=== PATIENT | female | born 1940 | race Hispanic/Latino ===

== ENCOUNTER 2023-09-04 09:52 | Emergency (ER) | payer MEDICARE, OTHER, SELFPAY ==
[2023-09-04] VITALS (7 sets, daily range): BP systolic 110–156; BP diastolic 72–99; PULSE 80–85
[2023-09-04 11:12] LABS: % Basophils 0.5 % (0-2); % Eosinophils 0.5 % (0-6); % Immature Granulocytes 0.5 % (0-0.5); % Lymphocytes 20.6 % (20.5-51.1); % Monocytes 7.6 % (1.7-9.3); % Neutrophils 70.3 % (42.2-75.2); Absolute Lymphocytes 0.9 10^3/uL (1.2-3.4); Absolute Monocytes 0.3 10^3/uL (0.1-0.6); Absolute Neutrophils 3.1 10^3/uL (1.4-6.5); Hematocrit 34.2 % (37.0-47.0); Hemoglobin 11.3 g/dL (12.0-16.0); Mean Corpuscular Hgb 29.4 pg (27.0-31.0); Mean Corpuscular Volume 89.1 fL (81.0-99.0); Mean Platelet Volume 10.1 fL (7.4-10.4); Nucleated Red Blood Cells % 0 %; Platelet Count 157 10^3/uL (130-400); Red Blood Cell Count 3.84 10^6/uL (4.20-5.40); Red Cell Dist. Width 14.1 % (11.5-14.5); White Blood Cell Count 4.4 10^3/uL (4.8-10.8)
--- NOTE | 2023-09-04 11:19 | ED.GENMED ---
History of Present Illness
General
Chief Complaint: Fainting Sensation
Source: patient
Exam Limitations: none
Time Seen by Provider: 09/04/23 11:13
Nursing documentation reviewed up to this point in time: agreed with
Travel History
Have you had any contact with someone who has COVID-19?: No
Do you have any symptoms of coronavirus? Fever > 100 degrees, chills, cough, shortness of breath, sore throat, loss of taste or smell, muscle aches, or headache?: No
History of Present Illness
History of Present Illness:
The patient is a pleasant 82-year-old female who reports a feeling of generalized fatigue and lightheadedness since yesterday. Patient reports that she was standing at her kitchen sink this morning and felt as though she was going to pass out.
Patient reports she had to hold onto the counter to prevent herself from falling down and passing out. Patient also reports very mild aching of the left side of her head but denies actual headache. She denies vision changes, focal weakness or
numbness. She denies vomiting and diarrhea. She reports earlier she felt slightly nauseous when she felt lightheaded. She denies sick contacts. She denies fever, sore throat, runny nose and cough.
Past History
Past History
ED Past Medical History: Cancer (colon, brain), HTN and Other (Previous colonic obstruction with near total colectomy in 2013, seasonal allergies)
ED Past Surgical History: Bowel resection (with colostomy) and
Social History
Tobacco: Non-smoker
Alcohol: None
Drug: None
Personal: Other
Living: with family
Employment: Other
Family History
Family History: Other
Review of Systems
Review of Systems
Allergies reviewed?: Yes
All Other Systems: ROS reviewed and negative except as documented in HPI and ROS
Constitutional: Reports fatigue
EENT: Reports no symptoms
Respiratory: Reports no symptoms
Cardiac: Reports other (Lightheaded)
ABD/GI: Reports nausea
: Reports no symptoms
Musculoskeletal: Reports no symptoms
Skin: Reports no symptoms
Neurological: Reports no symptoms
Endocrine: Reports no symptoms
Hematologic/Lymphatic: Reports no symptoms
Psychiatric: Reports no symptoms
Phy Exam
Physical Exam
Physical Exam:
Physical Exam
General: no apparent distress, not acutely ill
Neck: supple. no meningeal signs. normal psoterior pharynx
Heart: s1/s2 regular rate and rhythm, no murmur. equal radial pulses.
Lungs: no acute respiratory distress. clear bilaterally
Abdomen: normal bowel sounds. not tender. no CVAT
Neuro: alert and oriented. no focal neurological deficits. Cranial nerves equal and symmetric bilaterally. 5 out of 5 strength in all extremities without drift. Normal speech. Equal sensation bilaterally
Skin: no rash
Psychiatric: well kept. interactive and cooperative
Extremities: no edema. no calf tenderness. negative homans. good distal pulses
Course
Orders/Labs/Results
Orders:
Orders
09/04/23 11:01
Basic Metabolic Panel Urgent
Complete Blood Count/With Diff Urgent
Erythrocyte Sed Rate Urgent
Comment: ADD ON
TSH Urgent
Comment: ADD ON
09/04/23 11:19
Electrocardiogram (*1) Urgent
Reason for Study: Fatigue / Weakness
EKG- Treatment ONCE
09/04/23 11:20
Add On- LAB Urgent
Tests Added?: ESR
09/04/23 11:21
Troponin I Urgent
09/04/23 11:27
Orthostatic VS- Treatment ONCE
09/04/23 11:47
COVID-19 Antigen Urgent
Source: Nasal Swab
Urinalysis Reflex To Culture Urgent
Date Specimen was Collected: 09/04/23
Time Specimen was Collected: 11:36
Urine Microscopic Reflex Cult Urgent
Influenza A+B Rapid Molecular Urgent
GAURAV Source: Nasal Swab
Specimen Description:
09/04/23 12:32
0.9% Sodium Chloride 1000 ml [Nss] 1,000 ml IV BOLUS
09/04/23 12:34
Add On- LAB Urgent
Tests Added?: TSH
09/04/23 12:35
Add On- LAB Urgent
Tests Added?: monotest
09/04/23 12:55
LFT [Olcts-Jifg-Jdaujdu] Urgent
Potassium Urgent
Troponin I Urgent
09/04/23 13:57
Monotest Urgent
Comment: ADD ON
Abnormal Lab Results
09/04/23 09/04/23
11:01 11:47
WBC 4.4 L 10^3/uL
(4.8-10.8)
RBC 3.84 L 10^6/uL
(4.20-5.40)
Hgb 11.3 L g/dL
(12.0-16.0)
Hct 34.2 L %
(37.0-47.0)
Absolute Lymphs (auto) 0.9 L 10^3/uL
(1.2-3.4)
Ur Occult Blood Reflex 1+ A
(Negative)
Leukocyte Esterase Rfl Trace A
(Negative)
Urine RBC 3-6 A /HPF
(0-2)
09/04/23 11:01
09/04/23 12:55
Vital Signs
Initial and Last Documented VS:
Initial Vital Signs
Temp Pulse Resp BP Pulse Ox
98.9 F 82 16 143/73 99
09/04/23 09:55 09/04/23 09:55 09/04/23 09:55 09/04/23 09:55 09/04/23 09:55
Last Documented Vital Signs
Temp Pulse Resp BP Pulse Ox
98.9 F 80 20 125/72 99
09/04/23 09:55 09/04/23 14:15 09/04/23 13:15 09/04/23 14:00 09/04/23 09:55
MDM/Problems Addressed
Differential Diagnosis Includes:
Acute dehydration, hyponatremia, viral illness, UTI
MDM/Problems Addressed:
Patient presents with acute generalized weakness and lightheadedness
Acute Exacerbation and/or Progression of Chronic Illness:
Patient is acutely hypertensive, however, blood pressure improved on checking it again
Acute Exacerbation and/or Progression of Chronic Illness: HTN
*Pulse Oximetry
Patient hypoxic: no
*EKG
Interpreted by ED Provider?: Yes
Interpretation: normal
Comparison EKG: no changes
Rate: normal
Rhythm: sinus
[place]: normal axis
Interval: normal interval
QRS Pattern: normal QRS
Ischemia: no ischemia
*Pensionholder Information Clerk Interpretation
Rate: normal
Interpretation: normal
Rhythm: sinus
*Critical Care Note
Total Time (30-74mins, 75-104mins- exclusive of procedures): Not Applicable
Data Reviewed
Review of Other/Old Records Reveals: Testing (Cardiac echo 09/2022 shows no significant abnormalities and a normal EF)
Patient Management
Social determinants of health affecting care: Living situation and Strong social support
Escalation/DeEscalation of care consider admission/obs:
Patient remains very well and comfortable appearing. She has not had a cough and her lung sounds are normal therefore it is doubtful she has pneumonia. Her urine does not look suspicious for UTI. She has had no chest pain or shortness of breath
and her EKG appears nonischemic so it is doubtful she is acute coronary syndrome. She has no significant metabolic abnormalities. Is unclear what caused her lightheadedness. Patient reports she feels much better. Patient looks well and has the
support of her daughter.
ED Attending Note
-
Portions of this chart may have been created with voice recognition software.� Occasional wrong word or��sound alike� substitutions may have occurred due to the inherent limitations of voice recognition software.
Discharge Plan
Departure
Patient Disposition: Home (Routine Discharge)
Date of Disposition: 09/04/23
Time of Disposition: 14:43
Patient with high blood pressure during this ER visit?: Yes
Condition: Good
Covid-19: Negative COVID-19
Discharge Problem:
Lightheadedness
Instructions: Near Fainting (DC)
Prescriptions:
No Action
doxycycline hyclate 100 MG capsule
100 mg PO Q12 Qty: 14 0RF
clindamycin HCl 300 mg capsule
300 mg PO TID Qty: 21 0RF
Referrals:
Mariia Melo MD [Family Provider] -
Activity Restrictions/Additional Instructions:
Drink lots of fluids to keep yourself well-hydrated and rest. Please follow-up with your primary care doctor in 2 to 3 days. Your red blood cell and white blood cell count were on the lower side. Please speak to your doctor about possibly
following up with a computer networker, which is a blood doctor
Interventions
Interventions:
*Risk Screen - Suicide Last Done: 09/04/23 09:55
*General Assessment Last Done: 09/04/23 09:55
*Neglect/Abuse Screening Last Done: 09/04/23 09:55
*Nursing Disposition Last Done: 09/04/23 14:57
ED- Cardiac Assessment Last Done: 09/04/23 11:08
ED- Neurological Assessment Last Done: 09/04/23 11:08
[2023-09-04 11:34] LABS: Erythrocyte Sed Rate 8 mm/hour (0-20)
[2023-09-04 11:35] LABS: Blood Urea Nitrogen 9 mg/dl (7-17); Calcium 9.2 mg/dl (8.4-10.2); Carbon Dioxide 26 mmol/L (22-30); Chloride 107 mmol/L (98-107); Glucose 94 mg/dl (70-99); Sodium 138 mmol/L (135-145); eGFR > 60.00
[2023-09-04 11:53] LABS: Troponin I < 0.012 ng/ml
[2023-09-04 12:03] LABS: Urine Albumin Negative (Neg - Trace); Urine Bilirubin Negative (Negative); Urine Character Clear (Clear); Urine Color Yellow; Urine Glucose Negative (Negative); Urine Ketone Negative (Negative); Urine Leukocyte Trace (Negative); Urine Nitrite Negative (Negative); Urine Occult Blood 1+ (Negative); Urine Specific Gravity 1.015 (<1.030); Urine Urobilinogen Negative (Neg - 1+)
[2023-09-04 12:14] LABS: COVID-19 Antigen Negative (Negative)
[2023-09-04 12:22] LABS: Urine White Cell 0-2 /HPF (0-5)
[2023-09-04] MEDS: NSS 1000 IV (12:54)
[2023-09-04 13:17] LABS: ALT (SGPT) 14 U/L (0-35); AST (SGOT) 25 U/L (14-36); Albumin 4.4 g/dl (3.5-5.0); Alkaline Phosphatase 50 U/L (38-126); Potassium 3.8 mmol/L (3.5-5.1); Total Protein 7.1 g/dl (6.3-8.2)
[2023-09-04 13:25] LABS: Troponin I < 0.012 ng/ml
[2023-09-04 13:25] LABS: TSH 0.81 uIU/ml (0.47-4.68)
[2023-09-04 14:28] LABS: Monotest Negative (Negative)
== END 2023-09-04 15:04 | disposition home or self-care (01) ==
LOC: EMR 09:52
PROVIDERS: Physician Assistant; EMERGENCY PHYSICIAN Emergency Medicine; FAMILY PHYSICIAN Student in an Organized Health Care Education/Training Program
DX: R55 Syncope and collapse (principal); R53.83 Other fatigue; I10 Essential (primary) hypertension; Z85.038 Personal history of other malignant neoplasm of large intestine; Z90.49 Acquired absence of other specified parts of digestive tract; Z93.3 Colostomy status
CPT/HCPCS: 99283; 80048; 80076; 81003; 81015; 84132; 84443; 84484; 85025; 85652; 86308; 87502; 87811; 93005

== ENCOUNTER → 2024-08-10 16:26 | Outpatient (REF) | payer MEDICARE, OTHER, SELFPAY | LOC: RAD 16:26 | PROVIDERS: ATTENDING PHYSICIAN Student in an Organized Health Care Education/Training Program | DX: R68.84 Jaw pain (principal); R51.9 Headache, unspecified; M35.0C Sjogren syndrome with dental involvement | CPT/HCPCS: 70488; Q9967 ==

== ENCOUNTER 2024-09-15 07:30 | Emergency (ER) | payer MEDICARE, OTHER, SELFPAY ==
[2024-09-15 07:32] VITALS: BP 167/89
[2024-09-15 07:59] VITALS: BMI 20.5
--- NOTE | 2024-09-15 08:38 | ED.GENMED ---
History of Present Illness
General
Chief Complaint: Throat Problem
Source: patient
Exam Limitations: none
Time Seen by Provider: 09/15/24 08:03
Nursing documentation reviewed up to this point in time: agreed with
History of Present Illness
History of Present Illness:
83-year-old female presenting to the emergency department today with concerns of a numbness and swelling sensation to the mouth and throat. Has been having some mild ulcerations in the mouth was given Magic mouthwash by the dentist few days ago.
Thought her tongue might be swollen and had some difficulty swallowing today. Otherwise denies any numbness additional concerns.
Past History
Past History
ED Past Medical History: Cancer (colon, brain), HTN and Other (Previous colonic obstruction with near total colectomy in 2013, seasonal allergies)
ED Past Surgical History: Bowel resection (with colostomy) and
Social History
Tobacco: Non-smoker
Alcohol: None
Drug: None
Personal: Other
Living: with family
Employment: Other
Family History
Family History: Other
Review of Systems
Review of Systems
Allergies reviewed?: Yes
All Other Systems: ROS reviewed and negative except as documented in HPI and ROS
Phy Exam
Physical Exam
Physical Exam:
GENERAL: Alert , in no apparent distress
EYE: pupils equal and reactive
NECK: Supple, no significant adenopathy.
ENT: Postnasal drip, cobblestoning of the posterior pharynx o/p clr, mmm.
CARDIAC: Regular rate and rhythm .
LUNGS: Clear breath sounds bilaterally, no acute respiratory distress, no wheezes/rales/rhonchi
ABDOMEN: Soft, without focal tenderness, no r/g, no cvat
NEUROLOGICAL: Alert and oriented, no focal neuro deficits
SKIN: Warm and dry, skin intact.
MUSCULOSKELETAL: No edema, well perfused.
PSYCH: Normal and appropriate interaction.
Course
Orders/Labs/Results
Orders:
Orders
09/15/24 08:17
Dexamethasone [Decadron] 10 mg PO NOW STA
Soft Tissue, Neck [CR Soft Tissue Neck ] Urgent
Comment:
Reason For Exam: neck swelling/swallowing issue
Vital Signs
Initial and Last Documented VS:
Initial Vital Signs
Temp Pulse Resp BP Pulse Ox
98.4 F 87 18 167/89 97
09/15/24 07:32 09/15/24 07:32 09/15/24 07:32 09/15/24 07:32 09/15/24 07:32
Last Documented Vital Signs
Temp Pulse Resp BP Pulse Ox
98.2 F 73 16 138/58 96
09/15/24 08:42 09/15/24 08:42 09/15/24 08:42 09/15/24 08:42 09/15/24 08:42
MDM/Problems Addressed
MDM/Problems Addressed:
83-year-old female presenting to the emergency department today with concerns of a numbness sensation in mouth as well as sensation of swelling to the throat. On arrival blood pressure elevated but otherwise vital signs are normal. Patient is
tolerating secretions with normal phonation normal neurologic evaluation does have postnasal drip on examination and some swollen boggy nasal turbinates. This could be explaining patient's symptoms. No evidence of any bacterial infection no
evidence of neurologic dysfunction causing symptoms. Could be inflammatory upper respiratory problem. Plan to treat with steroid and otherwise follow-up closely as an outpatient.
*Critical Care Note
Total Time (30-74mins, 75-104mins- exclusive of procedures): Not Applicable
ED Attending Note
-
Portions of this chart may have been created with voice recognition software.� Occasional wrong word or��sound alike� substitutions may have occurred due to the inherent limitations of voice recognition software.
Discharge Plan
Departure
Patient Disposition: Home (Routine Discharge)
Date of Disposition: 09/15/24
Time of Disposition: 09:40
Patient with high blood pressure during this ER visit?: No
Condition: Good
Covid-19: Not Applicable
Discharge Problem:
PND (post-nasal drip), Throat pain
Instructions: Sore Throat, Adult (DC), Dysphagia (DC)
Prescriptions:
New
methylprednisolone [Medrol (Shabbir)] 4 mg tablets,dose pack
See Rx Instructions .ROUTE .COMPLEX Qty: 21 0RF
Rx Instructions:
for 6 days
fluticasone propionate [Flonase Allergy Relief] 50 mcg/actuation spray,suspension
1 spray intranasal BID Qty: 16 0RF
No Action
doxycycline hyclate 100 MG capsule
100 mg PO Q12 Qty: 14 0RF
clindamycin HCl 300 mg capsule
300 mg PO TID Qty: 21 0RF
Referrals:
Mariia Melo MD [Family Provider] -
Activity Restrictions/Additional Instructions:
You came to the emergency department today with concerns of swallowing. Here you have a reassuring assessment. Please use the prescribed medications to help with symptoms and follow-up closely with the primary care doctor. If symptoms are ongoing
you will need reassessment. Return for any progressive or worsening symptoms.
Interventions
Interventions:
*Risk Screen - Suicide Last Done: 09/15/24 07:32
*General Assessment Last Done: 09/15/24 07:32
*Neglect/Abuse Screening Last Done: 09/15/24 07:32
*ED- Fall Risk Assessment Last Done: 09/15/24 07:50
*ED COVID-19 Vaccine History Last Done: 09/15/24 07:54
ED-EENT Assessment Last Done: 09/15/24 07:49
ED- Pulmonary Assessment Last Done: 09/15/24 07:47
Discharge Date and Time
Print Language: GUAMANIAN
[2024-09-15] MEDS: DECADRON 10 MG PO (08:40)
[2024-09-15 08:42] VITALS: BP 138/58
[2024-09-15 10:03] VITALS: BP 153/75
== END 2024-09-15 10:05 | disposition home or self-care (01) ==
LOC: EMR 07:30
PROVIDERS: EMERGENCY PHYSICIAN Emergency Medicine; FAMILY PHYSICIAN Student in an Organized Health Care Education/Training Program
DX: R09.82 Postnasal drip (principal); R07.0 Pain in throat; I10 Essential (primary) hypertension; Z85.038 Personal history of other malignant neoplasm of large intestine; Z90.49 Acquired absence of other specified parts of digestive tract; Z93.3 Colostomy status
CPT/HCPCS: 99283; 70360

== ENCOUNTER 2025-01-18 07:15 | Emergency (ER) | payer MEDICARE, OTHER, SELFPAY ==
[2025-01-18 07:17] VITALS: BP 168/87
[2025-01-18 07:20] VITALS: BP 125/86; BMI 18.3
--- NOTE | 2025-01-18 07:31 | ED.GENMED ---
History of Present Illness
General
Chief Complaint: Back Pain
Source: patient
Time Seen by Provider: 01/18/25 07:22
History of Present Illness
History of Present Illness:
84-year-old female presents emergency room complaining of low back pain. Patient began having pain few days ago after moving some items from the closet. Pain has persisted. Pain is located at the central low back and rates down to her sacrum.
Pain is worse with movement. No bowel or bladder dysfunction. No numbness or tingling. Patient is able to ambulate and perform activities of daily living. Yesterday the pain began radiating down her right thigh.
Past History
Past History
ED Past Medical History: Cancer (colon, brain), HTN and Other (Previous colonic obstruction with near total colectomy in 2013, seasonal allergies)
ED Past Surgical History: Bowel resection (with colostomy) and
Social History
Tobacco: Non-smoker
Alcohol: None
Drug: None
Personal: Other
Living: with family
Employment: Other
Family History
Family History: Other
Phy Exam
Physical Exam
Physical Exam:
General: Awake, Alert, Oriented X3. No acute distress.
Vitals: unremarkable
Head: Atraumatic
Eyes: Pupils equal, EOMI
Neck: Trachea midline
Lungs: Clear and equal b/l
Heart: Regular rate, no murmurs
Abd: Soft, Nontender, No pulsatile mass
Back: Mild midline tenderness to palpation
Neuro: Nonfocal
Skin: Warm, dry, no rash
Extremities: pulses equal b/l, no edema
Course
Orders/Labs/Results
Orders:
Orders
01/18/25 07:30
Lumbar Spine Complete, 4 View [CR Lumbar Spine Comp Min 4 Vw*] Urgent
Comment:
Reason For Exam: low back pain
Vital Signs
Initial and Last Documented VS:
Initial Vital Signs
Temp Pulse Resp BP Pulse Ox
98.5 F 76 16 168/87 99
01/18/25 07:17 01/18/25 07:17 01/18/25 07:17 01/18/25 07:17 01/18/25 07:17
Last Documented Vital Signs
Temp Pulse Resp BP Pulse Ox
98.6 F 86 20 125/86 99
01/18/25 07:20 01/18/25 07:20 01/18/25 07:20 01/18/25 07:20 01/18/25 07:32
MDM/Problems Addressed
Differential Diagnosis Includes:
Compression fracture, muscle strain, DJD
MDM/Problems Addressed:
Patient presents with low back pain. Pain began after doing some lifting. No focal neurologic problems no numbness or tingling.
*Pulse Oximetry
SaO2: 99
Oxygen Mode of Delivery: Room air
Patient hypoxic: no
*Critical Care Note
Total Time (30-74mins, 75-104mins- exclusive of procedures): Not Applicable
ED Attending Note
-
Portions of this chart may have been created with voice recognition software.� Occasional wrong word or��sound alike� substitutions may have occurred due to the inherent limitations of voice recognition software.
Discharge Plan
Departure
Patient Disposition: Home (Routine Discharge)
Date of Disposition: 01/18/25
Time of Disposition: 08:36
Patient with high blood pressure during this ER visit?: Yes
Condition: Good
Discharge Problem:
Low back strain
Instructions: Low Back Pain (DC)
Prescriptions:
New
celecoxib [Celebrex] 100 mg capsule
200 mg PO BID PRN (Reason: Pain) Qty: 40 0RF
No Action
doxycycline hyclate 100 MG capsule
100 mg PO Q12 Qty: 14 0RF
clindamycin HCl 300 mg capsule
300 mg PO TID Qty: 21 0RF
methylprednisolone [Medrol (Shabbir)] 4 mg tablets,dose pack
See Rx Instructions .ROUTE .COMPLEX Qty: 21 0RF
Rx Instructions:
for 6 days
fluticasone propionate [Flonase Allergy Relief] 50 mcg/actuation spray,suspension
1 spray intranasal BID Qty: 16 0RF
Referrals:
Rehan Jordan MD [Active, Anesthesiology]
Mariia Melo MD [Family Provider, Internal Medicine]
Interventions
Interventions:
*Risk Screen - Suicide Last Done: 01/18/25 07:17
*General Assessment Last Done: 01/18/25 07:20
*Neglect/Abuse Screening Last Done: 01/18/25 07:17
*ED- Fall Risk Assessment Last Done: 01/18/25 07:20
*ED COVID-19 Vaccine History Last Done: 01/18/25 07:20
*Nursing Disposition Last Done: 01/18/25 09:19
ED-Musculoskeletal Assessment Last Done: 01/18/25 07:20
Discharge Date and Time
Discharge Date/Time: 01/18/25 09:20
Print Language: TANZANIAN
== END 2025-01-18 09:20 | disposition home or self-care (01) ==
LOC: EMR 07:15
PROVIDERS: EMERGENCY PHYSICIAN Emergency Medicine; FAMILY PHYSICIAN Student in an Organized Health Care Education/Training Program
DX: S39.012A Strain of muscle, fascia and tendon of lower back, initial encounter (principal); M79.651 Pain in right thigh; X50.9XXA Other and unspecified overexertion or strenuous movements or postures, initial encounter; Y93.89 Activity, other specified; I10 Essential (primary) hypertension; Z98.0 Intestinal bypass and anastomosis status; Z88.1 Allergy status to other antibiotic agents; Z88.2 Allergy status to sulfonamides; Z88.8 Allergy status to other drugs, medicaments and biological substances; Z91.048 Other nonmedicinal substance allergy status
CPT/HCPCS: 99283; 72110